=== PATIENT | female | born 1965 | race Caucasian/White ===

== ENCOUNTER 2024-06-18 08:35 | Day surgery (SDC) | payer BC ==
[2024-06-18 08:46] LABS: #Basophils 0.03 10x3/uL (0.0-0.2); %Basophils 0.6 % (0.0-1.0); %Eosinophils 3.5 % (0.0-10.0); %Lymphocytes 20.7 % (21.0-51.0); %Neutrophils 67.8 % (42.0-75.0); Hemoglobin 12.7 g/dL (12.0-16.0); Mean Platelet Volume 9.2 fL (7.4-10.4); Platelet Count 184 10x3/uL (130-400); RBC Distribution Width 17.1 % (11.5-14.5); Red Blood Cell (RBC) Count 4.71 mill/uL (4.20-5.40)
[2024-06-18 09:14] LABS: INR-International Normal Ratio 0.9; PTT 28.8 sec (22.9-36.1)
[2024-06-18] MEDS ORDERED: fentaNYL 50 mcg/mL 1 mL Vial ONE (10:41)
[2024-06-18] MEDS ORDERED: Midazolam HCl 2 mg/2 ml Vial ONE (10:42)
[2024-06-18] MEDS ORDERED: Lidocaine 1% w/Epinephrine 1:100K 20 ML VIAL ONE (10:42)
[2024-06-18] MEDS ORDERED: Sodium Bicarbonate 2.5 MEQ/5 ML SDV ONE (10:42)
== END 2024-06-18 15:23 | disposition home or self-care (01) ==
LOC: CT 08:35
PROVIDERS: ATTEND Internal Medicine Hematology & Oncology
PROC: 0BBC3ZX Excision of Right Upper Lung Lobe, Percutaneous Approach, Diagnostic (ICD-10-PCS; principal; 2024-06-18)
DX: R91.1 Solitary pulmonary nodule (principal); C54.1 Malignant neoplasm of endometrium; Z88.5 Allergy status to narcotic agent; Z88.0 Allergy status to penicillin; Z88.8 Allergy status to other drugs, medicaments and biological substances
CPT/HCPCS: 32408; 36415; 71045; 77012; 85025; 85610; 85730; 88305; 88333; 88334; 88341; 88342; J1642; J2250; J3010

== ENCOUNTER 2024-08-05 13:15 | Outpatient (CLI) | payer BC | END 2024-08-05 13:16 | disposition home or self-care (01) | LOC: BICRAD 13:15 | PROVIDERS: ATTEND Internal Medicine Hematology & Oncology | DX: C78.01 Secondary malignant neoplasm of right lung (principal); R91.8 Other nonspecific abnormal finding of lung field | CPT/HCPCS: 71046 ==

== ENCOUNTER 2024-10-13 13:13 | Outpatient (CLI) | payer BC ==
[~2024-10-13 13:13] MED LIST: Iopamidol 370 76% 100 ML VIAL ONE
== END 2024-10-13 13:14 | disposition home or self-care (01) ==
LOC: CT 13:13
PROVIDERS: ATTEND Internal Medicine Hematology & Oncology
DX: C54.1 Malignant neoplasm of endometrium (principal); C78.01 Secondary malignant neoplasm of right lung; R97.8 Other abnormal tumor markers; R91.8 Other nonspecific abnormal finding of lung field
CPT/HCPCS: 71260; 74177

== ENCOUNTER 2025-05-11 09:01 | Outpatient (CLI) | payer BC ==
[2025-05-11 09:40] LABS: Estimated GFR - POC 84.0
[2025-05-11] MEDS ORDERED: Iopamidol 370 76% 100 ML VIAL ONE (09:51)
== END 2025-05-11 09:02 | disposition home or self-care (01) ==
LOC: CT 09:01
PROVIDERS: ATTEND Internal Medicine Hematology & Oncology
DX: C54.1 Malignant neoplasm of endometrium (principal); C78.01 Secondary malignant neoplasm of right lung; R97.8 Other abnormal tumor markers
CPT/HCPCS: 36415; 71260; 74177; 82565

== ENCOUNTER 2025-08-03 07:32 | Outpatient (CLI) | payer BC ==
[2025-08-03] MEDS ORDERED: Iopamidol 370 76% 100 ML VIAL ONE (12:48)
== END 2025-08-03 07:33 | disposition home or self-care (01) ==
LOC: CT 07:32
PROVIDERS: ATTEND Internal Medicine Hematology & Oncology
DX: C54.1 Malignant neoplasm of endometrium (principal); C78.01 Secondary malignant neoplasm of right lung; R97.8 Other abnormal tumor markers; R91.8 Other nonspecific abnormal finding of lung field
CPT/HCPCS: 71260; 74177; Q9967